=== PATIENT | female | born 1985 | race Caucasian/White ===

== ENCOUNTER 2018-02-05 14:44 | Inpatient (IN) | payer SELFPAY ==
[2018-02-05 16:40] LABS: BILIRUBIN,URINE NEGATIVE (NEGATIVE); BLOOD/HEMOGLOBIN,URINE 4+ (NEGATIVE); GLUCOSE, URINE NEGATIVE (NEGATIVE); KETONES,URINE NEGATIVE (NEGATIVE); LEUKOCYTE ESTERASE ,URINE 3+ (NEGATIVE); NITRITES,URINE NEGATIVE (NEGATIVE); PH,URINE 6.5 (5.0 - 8.0); PROTEIN,URINE 2+ (NEGATIVE); UROBILINOGEN,URINE NORMAL (NORMAL)
[2018-02-05 16:52] LABS: APPEARANCE,URINE HAZY (CLEAR); COLOR,URINE YELLOW (YELLOW)
--- NOTE | 2018-02-05 16:52 | DR.GENAD ---
HPI - PCP Primary Care Physician: none - Complaint/Symptoms Chief Complaint Doctors Comments: Patient admits to hurting all, especially when urinating. She denies fever, vomiting or diarrhea. Chief Complaint:: "hurting when I pee hurting all over" Self Treatment fo Chief Complaint: tubes tied in 2017 every time i have sex i bleed - Source History Provided: Patient - Mode of Arrival Mode of Arrival: Ambulatory - Timing Onset of Chief Complaint: 02/03/18 PMH - PMH Past Medical History: Yes Past Medical History: Anxiety, Asthma Past Surgical History: Yes Surgical History: Past Surgical History Comment: tubes tied - Family History History of Family Medical Conditions: Yes Family Medical History: Diabetes Mellitus, Cancer, Hypertension - Social History Does patient currently use any type of tobacco product: Yes Have you used tobacco products in the last 12 months: Yes Type of Tobacco Use: Cigarettes How many years tobacco product used: 15 Does any household member use tobacco: No Alcohol Use: None Do you use any recreational Drugs:: No Lives With: Family Lives Where: Home - infectious screening In the last 2 months have you had wt loss of >10#?: NO Have you had fever, night sweats or hemotysis?: No Have you traveled outside the country in the last 6 months?: No Isolation: Standard PE - Vital Signs Vitals: Temperature 100 F Pulse Rate 117 Respiratory Rate 18 Blood Pressure 120/70 O2 Sat by Pulse Oximetry 99 ROR - Labs Reviewed Result Diagrams: 02/05/18 17:22 02/05/18 17:10 Laboratory: WBC 13.7 X10^3/uL (3.6-10.0) H 02/05/18 17: RBC 4.58 X10^6/uL (3.5-5.4) 02/05/18 17:22 Hgb 12.8 g/dL (12.0-16.0) 02/05/18 17:22 Hct 37.1 % (36.0-47.0) 02/05/18 17:22 MCV 81.0 fL (80.0-100.0) 02/05/18 17:22 MCH 27.9 pg (27.0-34.0) 02/05/18 17:22 MCHC 34.4 g/dL (33.0-35.0) 02/05/18 17:22 RDW 15.7 % (11.6-16.5) 02/05/18 17:22 Plt Count 174 X10^3/uL (150.0-450.0) 02/05/18 17:22 MPV 9.0 fL (7.4-11.0) 02/05/18 17:22 Neut % (Auto) 78.2 % (42.0-75.0) H 02/05/18 17:22 Lymph % (Auto) 10.9 % (21.0-51.0) L 02/05/18 17:22 [place] % (Auto) 10.3 % (0.0-13.0) 02/05/18 17:22 Eos % (Auto) 0.1 % (0.9-2.9) L 02/05/18 17:22 Baso % (Auto) 0.5 % (0.2-1.0) 02/05/18 17:22 Neut # (Auto) 10.7 x10^3/uL (2.2-4.8) H 02/05/18 17:22 Lymph # (Auto) 1.5 X10^3/uL (1.3-2.9) 02/05/18 17:22 [place] # (Auto) 1.4 x10^3/uL (0.3-0.8) H 02/05/18 17:22 Eos # (Auto) 0.0 x10^3/uL (0.0-0.2) 02/05/18 17:22 Baso # (Auto) 0.1 X10^3/uL (0.0-0.1) 02/05/18 17:22 Absolute Nucleated RBC 0.0 /100WBC 02/05/18 17:22 Sodium 130 mmol/L (136-145) L 02/05/18 17:10 Corrected Sodium TNP 02/05/18 17:10 Potassium 3.9 mmol/L (3.5-5.1) 02/05/18 17:10 Chloride 96 mmol/L (98-107) L 02/05/18 17:10 Carbon Dioxide 20.6 mmol/L (21-32) L 02/05/18 17:10 BUN 9 mg/dL (7-18) 02/05/18 17:10 Creatinine 0.82 mg/dL (0.55-1.02) 02/05/18 17:10 Est GFR (MDRD) Af Amer > 60 (>60) 02/05/18 17:10 Est GFR (MDRD) Non-Af > 60 (>60) 02/05/18 17:10 Glucose 99 mg/dL (65-99) 02/05/18 17:10 Calcium 8.0 mg/dL (8.5-10.1) L 02/05/18 17:10 C-Reactive Protein 183.00 mg/L (0-3.0) H 02/05/18 17:10 HCG, Qual Negative <10 mIU/mL 02/05/18 17:10 Specimen Type Random urine 02/05/18 16:30 Urine Color Yellow (YELLOW) 02/05/18 16:30 Urine Appearance Hazy (CLEAR) 02/05/18 16:30 Urine pH 6.5 (5.0 - 8.0) 02/05/18 16:30 Ur Specific [place] 1.010 (1.000-1.030) 02/05/18 16:30 Urine Protein 2+ (NEGATIVE) 02/05/18 16:30 Urine Glucose (UA) Negative (NEGATIVE) 02/05/18 16:30 Urine Ketones Negative (NEGATIVE) 02/05/18 16:30 Urine Occult Blood 4+ (NEGATIVE) 02/05/18 16:30 Urine Nitrite Negative (NEGATIVE) 02/05/18 16:30 Urine Bilirubin Negative (NEGATIVE) 02/05/18 16:30 Urine Urobilinogen Normal (NORMAL) 02/05/18 16:30 Ur Leukocyte Esterase 3+ (NEGATIVE) 02/05/18 16:30 Urine RBC 5-10 /HPF (NONE SEEN) 02/05/18 16:30 Urine WBC 3-5 /HPF (NONE SEEN) 02/05/18 16:30 Ur Squamous Epith Cells Moderate /HPF (NEGATIVE) 02/05/18 16:30 Urine Bacteria Negative /HPF (NEGATIVE) 02/05/18 16:30 Urine Mucus Few /HPF (NEGATIVE) 02/05/18 16:30 Ur Culture Indicated? No/not indicated 02/05/18 16:30 - Discharge Plan Condition: Stable - Follow ups/Referrals Follow ups/Referrals: NFD,None [Primary Care Provider] - 3 days - Instructions
[2018-02-05 16:53] LABS: BACTERIA,URINE NEGATIVE /HPF (NEGATIVE); MUCUS,URINE FEW /HPF (NEGATIVE); SQUAMOUS EPITHELIAL CELL,UR MODERATE /HPF (NEGATIVE)
[2018-02-05 17:29] LABS: BASOPHILS # (AUTO) 0.1 X10^3/uL (0.0-0.1); BASOPHILS % (AUTO) 0.5 % (0.2-1.0); EOSINOPHILS % (AUTO) 0.1 % (0.9-2.9); HEMATOCRIT 37.1 % (36.0-47.0); HEMOGLOBIN 12.8 g/dL (12.0-16.0); LYMPHOCYTES # (AUTO) 1.5 X10^3/uL (1.3-2.9); LYMPHOCYTES % (AUTO) 10.9 % (21.0-51.0); MEAN CORPUSCULAR HEMOGLOBIN 27.9 pg (27.0-34.0); MEAN CORPUSCULAR HGB CONC 34.4 g/dL (33.0-35.0); MONOCYTES # (AUTO) 1.4 x10^3/uL (0.3-0.8); MONOCYTES % (AUTO) 10.3 % (0.0-13.0); NEUTROPHILS # (AUTO) 10.7 x10^3/uL (2.2-4.8); NEUTROPHILS % (AUTO) 78.2 % (42.0-75.0); PLATELET COUNT 174 X10^3/uL (150.0-450.0); RED BLOOD COUNT 4.58 X10^6/uL (3.5-5.4); RED CELL DISTRIBUTION WIDTH 15.7 % (11.6-16.5); WHITE BLOOD COUNT 13.7 X10^3/uL (3.6-10.0)
[2018-02-05 17:36] LABS: SERUM PREGNANCY TEST, QUAL NEGATIVE <10 mIU/mL
[2018-02-05 17:42] LABS: BLOOD UREA NITROGEN 9 mg/dL (7-18); CARBON DIOXIDE 20.6 mmol/L (21-32); CHLORIDE 96 mmol/L (98-107); CREATININE 0.82 mg/dL (0.55-1.02); SODIUM 130 mmol/L (136-145); eGFR BLACK RACES > 60 (>60); eGFR NON BLACK RACES > 60 (>60)
--- NOTE | 2018-02-05 20:08 | CT ---
CT abdomen and pelvis with contrast Indication: Abdominal flank pain Technique: Helical images through the abdomen and pelvis after IV contrast. Coronal and sagittal refo rmats provided. Findings: Limited images through the lower chest shows no acute abnormality. Review of bone windows s hows no destructive osseous lesion. Abdomen: The liver, gallbladder, adrenal glands, pancreas, stomach, small bowel and colon are normal. The appendix is not well seen without right lower quadrant inflammatory process. The spleen is somew hat lobular. The right kidney is normal. Left kidney shows striated nephrogram, slight enlargement an d perinephric stranding. No stone or hydroureteronephrosis seen. Duplicated IVC noted. Pelvis: There is free fluid in the pelvis. The rectum, urinary bladder and uterus show no acute abnor mality. Right adnexal region appears normal. Left corpus luteum cyst noted. Impression: 1. Left pyelonephritis 2. 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 Reported By:
[2018-02-05] MEDS: MORPHINE SULFATE INJ 4 MG IVP PRN (21:21)
[2018-02-05] MEDS: ZOFRAN INJ 4 MG VIAL IVP PRN (21:23)
[2018-02-05] MEDS ORDERED: AMPICILLIN VIAL 1 GM ONE (21:31)
[2018-02-05] MEDS ORDERED: NS 100 ML IV + SPIKE MINIBAG* 100 ML IV ONE (21:32)
[2018-02-05] MEDS: NS IV SCH (21:40)
[2018-02-05] MEDS: AMPICILLIN IV SCH (21:40)
[2018-02-05] MEDS: SPIKE MINIBAG IV SCH (21:40)
[2018-02-05] MEDS: NS 1000 ML 1,000 ML IV SCH (21:40)
[2018-02-05 23:58] VITALS: BMI 28.1
[2018-02-06] MEDS ORDERED: AMPICILLIN VIAL 1 GM ONE (02:11)
[2018-02-06] MEDS ORDERED: NS 100 ML IV + SPIKE MINIBAG* 100 ML IV ONE ×3 (02:14→12:02)
[2018-02-06] MEDS: NS IV SCH ×2 (02:15→08:12)
[2018-02-06] MEDS: AMPICILLIN IV SCH ×2 (02:15→08:12)
[2018-02-06] MEDS: SPIKE MINIBAG IV SCH ×2 (02:15→08:12)
[2018-02-06] MEDS: MORPHINE SULFATE INJ 4 MG IVP PRN ×5 (02:15→21:30)
[2018-02-06] MEDS ORDERED: GENTAMICIN INJ ONE (05:28)
[2018-02-06] MEDS ORDERED: NS 100 ML IV 100 ML IV ONE (05:29)
[2018-02-06] MEDS: NS 1000 ML 1,000 ML IV SCH ×3 (05:53→22:16)
[2018-02-06] MEDS ORDERED: GENTAMICIN INJ 80 MG in NS 100 ML IV 100 ML IV SCH (06:00)
[2018-02-06 07:10] LABS: ALANINE AMINOTRANSFERASE 14 Units/L (12-78); ALBUMIN 2.9 g/dL (3.4-5.0); ALKALINE PHOSPHATASE 63 Units/L (46-116); ASPARTATE AMINO TRANSFERASE 9 Units/L (15-37); BLOOD UREA NITROGEN 7 mg/dL (7-18); CALCIUM 7.6 mg/dL (8.5-10.1); CARBON DIOXIDE 24.9 mmol/L (21-32); CHLORIDE 99 mmol/L (98-107); COR CA(FOR HYPOALB) 8.5 mg/dL (8.5-10.1); CREATININE 0.92 mg/dL (0.55-1.02); SODIUM 134 mmol/L (136-145); TOTAL PROTEIN 6.9 g/dL (6.4-8.2); eGFR BLACK RACES > 60 (>60); eGFR NON BLACK RACES > 60 (>60)
[2018-02-06 07:12] LABS: BASOPHILS % (AUTO) 0.5 % (0.2-1.0); EOSINOPHILS # (AUTO) 0.1 x10^3/uL (0.0-0.2); HEMATOCRIT 34.1 % (36.0-47.0); HEMOGLOBIN 11.6 g/dL (12.0-16.0); LYMPHOCYTES # (AUTO) 2.1 X10^3/uL (1.3-2.9); LYMPHOCYTES % (AUTO) 23.9 % (21.0-51.0); MEAN CORPUSCULAR HEMOGLOBIN 27.9 pg (27.0-34.0); MEAN CORPUSCULAR HGB CONC 34.2 g/dL (33.0-35.0); MEAN CORPUSCULAR VOLUME 81.8 fL (80.0-100.0); MEAN PLATELET VOLUME 9.4 fL (7.4-11.0); MONOCYTES # (AUTO) 1.1 x10^3/uL (0.3-0.8); MONOCYTES % (AUTO) 13.1 % (0.0-13.0); NEUTROPHILS # (AUTO) 5.3 x10^3/uL (2.2-4.8); NEUTROPHILS % (AUTO) 61.5 % (42.0-75.0); PLATELET COUNT 170 X10^3/uL (150.0-450.0); RED BLOOD COUNT 4.17 X10^6/uL (3.5-5.4); RED CELL DISTRIBUTION WIDTH 16.2 % (11.6-16.5); WHITE BLOOD COUNT 8.7 X10^3/uL (3.6-10.0)
[2018-02-06] MEDS: ZOFRAN INJ 4 MG VIAL IVP PRN (08:12)
[2018-02-06] MEDS: CIPRO IV 400 MG PREMIX* 400 MG/200 ML IV.SOLN. IV SCH ×2 (10:57→21:00)
[2018-02-06] MEDS: ZOSYN VIAL 4.5 GM IV SCH ×3 (12:29→22:15)
--- NOTE | 2018-02-06 16:39 | DR.H&P ---
H&P - History & Physical for Day of: H&P Date: 02/05/18 - Chief Complaint Chief Complaint: ABDOMINAL PAIN, DYSURIA - Allergies Allergies/Adverse Reactions: Allergies Allergy/AdvReac Type Severity Reaction Status Date / Time No Known Drug Allergies Allergy Verified 02/05/18 14:46 - History of Present Illness History of Present Illness: IS A 32 YEAR OLD WHITE FEMALE WHO PRESENTED TO THE EMERGENCY ROOM WITH COMPLAINTS OF GENERALIZED ACHING, ABDOMINAL PAIN, AND PAINFUL URINATION. SHE DENIES FEVER, VOMITING, OR DIARRHEA. MEDICAL HISTORY INCLUDES ANXIETY, ASTHMA, , AND A RECENT TUBAL LIGATION. ON EXAMINATION, MODERATE TENDERNESS NOTED TO THE SUPRAPUBIC ARE ON PALPATION. ON ARRIVAL TO THE ER, VITALS WERE 100.0-117-18-99%-120/70. LABS WERE OBTAINED. ABNORMAL LAB VALUES INCLUDE THE FOLLOWING: WBC 13.7, SODIUM 130, CHLORIDE 96, CARBON DIOXIDE 20.6, CALCIUM 8.0, CRP 183. A URINALYSIS REVEALED WBC 3-5, RBC 5-10, LEUKOCYTES 3+, BACTERIA NEGATIVE, OCCULT BLOOD 4+, PROTEIN 2+ . A URINE CULTURE AND BLOOD CULTURES ARE PENDING. AN ABDOMEN/PELVIS CT WITH CONTRAST WAS OBTAINED AND REVEALED LEFT PYELOEPHRITIS. DUPLICATED IVC, CORPUS LUTEUM CYST ON THE LEFT. PATIENT WAS ADMITTED TO THE HOSPITAL FOR FURTHER EVALUATION AND TREATMENT. SHE WAS STARTED ON NORMAL SALINE AT 125ML/HR, AMPICILLIN 1GM IV Q6H, AND GENTAMICIN 80MG IV Q8H. WE PLAN TO FOLLOW UP WITH AM LABS AND CONTINUE TO MONITOR PATIENT. - Past Medical History Past Medical History: Anxiety, Asthma - Past Surgical History Surgical History: Additional Surgical History: RECENT TUBAL LIGATION - Family History Family Medical History: Diabetes Mellitus, Cancer, Hypertension - Social History Does patient currently use any type of tobacco product: Yes Have you used tobacco products in the last 12 months: Yes Type of Tobacco Use: Cigarettes How many years tobacco product used: 15 Does any household member use tobacco: Yes Alcohol Use: Occasionally Drug Use: None - Medications Home Medications: NK [NK] 02/05/18 [History Confirmed 02/05/18] - Review of Systems Constitutional: No Symptoms Reported Eyes: No Symptoms Reported ENT: No Symptoms Reported Respiratory: No Symptoms Reported Cardiovascular: No Symptoms Reported Gastrointestinal: Abdominal Pain Genitourinary: Dysuria Musculoskeletal: No Symptoms Reported Skin: No Symptoms Reported Neurological: No Symptoms Reported - Physical Exam Vital Signs: Temperature 98.6 F Pulse Rate [Radial] 85 Pulse Rate 117 Respiratory Rate 22 Blood Pressure [Left Arm] 123/58 Blood Pressure 120/70 O2 Sat by Pulse Oximetry 99 Oriented: Normal Eyes: Normal Ear: Normal Nose: Normal Throat: Normal Respiratory: Clear Throughout Cardiovascular: Normal : Normal Auscultation: Bowel Sounds: Normal Palpation: Normal Tenderness: Suprapubic, Moderate. negative: Rebound, Guarding, Rigidity Skin: Normal Musculoskeletal: Normal Psychiatric: Normal Mood Description: Calm Affect: Normal Speech Pattern: Clear - Assessment/Plan (1) Pyelonephritis Status: Acute Plan: NORMAL SALINE AT 125ML/HR, AMPICILLIN 1GM IV Q6H, GENTAMICIN 80MG IV Q6H, CONTINUE TO MONITOR
[2018-02-06] MEDS: NICOTINE PATCH TD SCH (16:47)
[2018-02-07] MEDS ORDERED: NS 100 ML IV + SPIKE MINIBAG* 100 ML IV ONE ×3 (02:56→21:14)
[2018-02-07] MEDS: ZOSYN VIAL 4.5 GM IV SCH ×3 (06:30→21:13)
[2018-02-07 06:37] LABS: BASOPHILS % (AUTO) 0.5 % (0.2-1.0); EOSINOPHILS # (AUTO) 0.1 x10^3/uL (0.0-0.2); EOSINOPHILS % (AUTO) 1.6 % (0.9-2.9); HEMATOCRIT 33.4 % (36.0-47.0); HEMOGLOBIN 11.3 g/dL (12.0-16.0); LYMPHOCYTES % (AUTO) 26.8 % (21.0-51.0); MEAN CORPUSCULAR HEMOGLOBIN 27.8 pg (27.0-34.0); MEAN CORPUSCULAR HGB CONC 33.8 g/dL (33.0-35.0); MEAN CORPUSCULAR VOLUME 82.3 fL (80.0-100.0); MEAN PLATELET VOLUME 9.2 fL (7.4-11.0); MONOCYTES # (AUTO) 0.9 x10^3/uL (0.3-0.8); MONOCYTES % (AUTO) 11.8 % (0.0-13.0); NEUTROPHILS # (AUTO) 4.3 x10^3/uL (2.2-4.8); NEUTROPHILS % (AUTO) 59.3 % (42.0-75.0); PLATELET COUNT 193 X10^3/uL (150.0-450.0); RED BLOOD COUNT 4.06 X10^6/uL (3.5-5.4); WHITE BLOOD COUNT 7.3 X10^3/uL (3.6-10.0)
[2018-02-07 06:46] LABS: ALANINE AMINOTRANSFERASE 18 Units/L (12-78); ALBUMIN 2.6 g/dL (3.4-5.0); ALKALINE PHOSPHATASE 62 Units/L (46-116); ASPARTATE AMINO TRANSFERASE 15 Units/L (15-37); BLOOD UREA NITROGEN 6 mg/dL (7-18); CALCIUM 7.7 mg/dL (8.5-10.1); CARBON DIOXIDE 25.7 mmol/L (21-32); CHLORIDE 103 mmol/L (98-107); COR CA(FOR HYPOALB) 8.8 mg/dL (8.5-10.1); COR NA(FOR HYPERGLY) 138 mmol/L (136-145); CREATININE 0.72 mg/dL (0.55-1.02); SODIUM 138 mmol/L (136-145); TOTAL PROTEIN 6.2 g/dL (6.4-8.2); eGFR BLACK RACES > 60 (>60); eGFR NON BLACK RACES > 60 (>60)
[2018-02-07] MEDS: MORPHINE SULFATE INJ 4 MG IVP PRN ×4 (09:15→22:00)
[2018-02-07] MEDS: CIPRO IV 400 MG PREMIX* 400 MG/200 ML IV.SOLN. IV SCH ×2 (09:28→20:10)
[2018-02-07] MEDS: NICOTINE PATCH TD SCH (09:29)
[2018-02-07] MEDS: NS 1000 ML 1,000 ML IV SCH ×3 (16:16→20:29)
--- NOTE | 2018-02-07 19:52 | PCM.PROG ---
Progress Note - Progress Note for Day of Date: 02/06/18 - Subjective Subjective: IS BEING TREATED FOR PYELONEPHRITIS. TODAY, SHE IS ALERT AND ORIENTED, LYING IN BED ON MORNING ROUNDS. SHE CONTINUES WITH COMPLAINTS OF ABDOMINAL PAIN AND BURNING ON URINATION. ON EXAMINATION, SHE IS NOTED WITH MODERATE TENDERNESS TO THE SUPRAPUBIC AREA. BOWEL SOUNDS ARE NORMAL IN ALL QUADRANTS. HER VITALS THIS MORNING ARE 97.6-73-20-99%-97/54. LAB WERE OBTAINED. ABNORMAL LAB VALUES INCLUDE THE FOLLOWING: HGB 11.6, HCT 34.1, SODIUM 134, CALCIUM 7.6, AST 9, ALBUMIN 2.9. BLOOD CULTURES AND SPUTUM CULTURES ARE PENDING. TODAY, WE WILL DISCONTINUE THE AMPICILLIN AND THE GENTAMICIN THAT SHE IS CURRENTLY RECEIVING. WE WILL START CIPRO 400MG IV Q12H AND ZOSYN 4.5GM IV Q8H. OTHERWISE, WE WILL CONTINUE WITH CURRENT PLAN OF CARE. WE PLAN TO FOLLOW UP WITH AM LABS AND CONTINUE TO MONITOR PATIENT. - Past Medical Family Social History Past Med/Fam/Surg Hx: No changes since H&P Allergies: Allergies No Known Drug Allergies Allergy (Verified 02/05/18 14:46) - Review of Systems ROS: No change since H&P - Vital Signs and I&O's Vital Signs: Temperature 98.5 F Pulse Rate [Radial] 83 Pulse Rate 117 Respiratory Rate 18 Blood Pressure [Left Arm] 112/55 Blood Pressure 120/70 O2 Sat by Pulse Oximetry 100 Intake and Output: Intake & Output 02/05/18 02/06/18 02/07/18 02/08/18 11:59 11:59 11:59 11:59 Intake Total 1000 3130 1800 Balance 1000 3130 1800 - Physical Exam Oriented: Normal Eyes: Normal Ear: Normal Nose: Normal Throat: Normal Cardiovascular: Normal : Normal Auscultation: Bowel Sounds: Normal Palpation: Normal Tenderness: Suprapubic, Moderate. negative: Rebound, Guarding, Rigidity Skin: Normal Musculoskeletal: Normal Psychiatric: Normal Mood Description: Calm Affect: Normal Speech Pattern: Clear, Appropriate - Laboratory and Diagnostics Result Diagrams: 02/07/18 05:44 02/07/18 05:44 Labs: 02/06/18 02:24 Urine,Clean Catch Urine Culture - Preliminary 02/05/18 21:27 Blood Blood Culture - Preliminary 02/05/18 21:00 Blood Blood Culture - Preliminary Laboratory WBC 7.3 X10^3/uL (3.6-10.0) 02/07/18 05:44 RBC 4.06 X10^6/uL (3.5-5.4) 02/07/18 05:44 Hgb 11.3 g/dL (12.0-16.0) L 02/07/18 05:44 Hct 33.4 % (36.0-47.0) L 02/07/18 05:44 MCV 82.3 fL (80.0-100.0) 02/07/18 05:44 MCH 27.8 pg (27.0-34.0) 02/07/18 05:44 MCHC 33.8 g/dL (33.0-35.0) 02/07/18 05:44 RDW 16.0 % (11.6-16.5) 02/07/18 05:44 Plt Count 193 X10^3/uL (150.0-450.0) 02/07/18 05:44 MPV 9.2 fL (7.4-11.0) 02/07/18 05:44 Neut % (Auto) 59.3 % (42.0-75.0) 02/07/18 05:44 Lymph % (Auto) 26.8 % (21.0-51.0) 02/07/18 05:44 [place] % (Auto) 11.8 % (0.0-13.0) 02/07/18 05:44 Eos % (Auto) 1.6 % (0.9-2.9) 02/07/18 05:44 Baso % (Auto) 0.5 % (0.2-1.0) 02/07/18 05:44 Neut # (Auto) 4.3 x10^3/uL (2.2-4.8) 02/07/18 05:44 Lymph # (Auto) 2.0 X10^3/uL (1.3-2.9) 02/07/18 05:44 [place] # (Auto) 0.9 x10^3/uL (0.3-0.8) H 02/07/18 05:44 Eos # (Auto) 0.1 x10^3/uL (0.0-0.2) 02/07/18 05:44 Baso # (Auto) 0.0 X10^3/uL (0.0-0.1) 02/07/18 05:44 Absolute Nucleated RBC 0.0 /100WBC 02/07/18 05:44 Sodium 138 mmol/L (136-145) 02/07/18 05:44 Corrected Sodium 138 mmol/L (136-145) 02/07/18 05:44 Potassium 4.1 mmol/L (3.5-5.1) 02/07/18 05:44 Chloride 103 mmol/L (98-107) 02/07/18 05:44 Carbon Dioxide 25.7 mmol/L (21-32) 02/07/18 05:44 BUN 6 mg/dL (7-18) L 02/07/18 05:44 Creatinine 0.72 mg/dL (0.55-1.02) 02/07/18 05:44 Est GFR (MDRD) Af Amer > 60 (>60) 02/07/18 05:44 Est GFR (MDRD) Non-Af > 60 (>60) 02/07/18 05:44 Glucose 114 mg/dL (65-99) H 02/07/18 05:44 Calcium 7.7 mg/dL (8.5-10.1) L 02/07/18 05:44 Corrected Calcium 8.8 mg/dL (8.5-10.1) 02/07/18 05:44 Total Bilirubin 0.10 mg/dL (0.2-1.0) L 02/07/18 05:44 AST 15 Units/L (15-37) 02/07/18 05:44 ALT 18 Units/L (12-78) 02/07/18 05:44 Alkaline Phosphatase 62 Units/L (46-116) 02/07/18 05:44 C-Reactive Protein 100.40 mg/L (0-3.0) H 02/07/18 05:44 Total Protein 6.2 g/dL (6.4-8.2) L 02/07/18 05:44 Albumin 2.6 g/dL (3.4-5.0) L 02/07/18 05:44 Globulin 3.6 g/dL (2.5-4.5) 02/07/18 05:44 Albumin/Globulin Ratio 0.7 Ratio (1.1-2.1) L 02/07/18 05:44 HCG, Qual Negative <10 mIU/mL 02/05/18 17:10 Specimen Type Random urine 02/05/18 16:30 Urine Color Yellow (YELLOW) 02/05/18 16:30 Urine Appearance Hazy (CLEAR) 02/05/18 16:30 Urine pH 6.5 (5.0 - 8.0) 02/05/18 16:30 Ur Specific [place] 1.010 (1.000-1.030) 02/05/18 16:30 Urine Protein 2+ (NEGATIVE) 02/05/18 16:30 Urine Glucose (UA) Negative (NEGATIVE) 02/05/18 16:30 Urine Ketones Negative (NEGATIVE) 02/05/18 16:30 Urine Occult Blood 4+ (NEGATIVE) 02/05/18 16:30 Urine Nitrite Negative (NEGATIVE) 02/05/18 16:30 Urine Bilirubin Negative (NEGATIVE) 02/05/18 16:30 Urine Urobilinogen Normal (NORMAL) 02/05/18 16:30 Ur Leukocyte Esterase 3+ (NEGATIVE) 02/05/18 16:30 Urine RBC 5-10 /HPF (NONE SEEN) 02/05/18 16:30 Urine WBC 3-5 /HPF (NONE SEEN) 02/05/18 16:30 Ur Squamous Epith Cells Moderate /HPF (NEGATIVE) 02/05/18 16:30 Urine Bacteria Negative /HPF (NEGATIVE) 02/05/18 16:30 Urine Mucus Few /HPF (NEGATIVE) 02/05/18 16:30 Ur Culture Indicated? No/not indicated 02/05/18 16:30 - Plan (1) Pyelonephritis Status: Acute Plan: NORMAL SALINE AT 125ML/HR, ZOSYN 4.5GM IV Q8H, LEVAQUIN 750MG IV DAILY, CONTINUE TO MONITOR
[2018-02-08] MEDS: MORPHINE SULFATE INJ 4 MG IVP PRN ×2 (02:04→07:46)
[2018-02-08] MEDS ORDERED: NS 100 ML IV + SPIKE MINIBAG* 100 ML IV ONE (03:56)
[2018-02-08 04:22] LABS: BASOPHILS # (AUTO) 0.1 X10^3/uL (0.0-0.1); BASOPHILS % (AUTO) 0.7 % (0.2-1.0); EOSINOPHILS # (AUTO) 0.2 x10^3/uL (0.0-0.2); EOSINOPHILS % (AUTO) 2.1 % (0.9-2.9); HEMATOCRIT 32.8 % (36.0-47.0); HEMOGLOBIN 11.1 g/dL (12.0-16.0); LYMPHOCYTES # (AUTO) 2.4 X10^3/uL (1.3-2.9); LYMPHOCYTES % (AUTO) 30.4 % (21.0-51.0); MEAN CORPUSCULAR HEMOGLOBIN 27.8 pg (27.0-34.0); MEAN CORPUSCULAR HGB CONC 33.8 g/dL (33.0-35.0); MEAN CORPUSCULAR VOLUME 82.3 fL (80.0-100.0); MEAN PLATELET VOLUME 8.9 fL (7.4-11.0); MONOCYTES # (AUTO) 0.8 x10^3/uL (0.3-0.8); MONOCYTES % (AUTO) 10.7 % (0.0-13.0); NEUTROPHILS # (AUTO) 4.4 x10^3/uL (2.2-4.8); NEUTROPHILS % (AUTO) 56.1 % (42.0-75.0); PLATELET COUNT 209 X10^3/uL (150.0-450.0); RED BLOOD COUNT 3.99 X10^6/uL (3.5-5.4); RED CELL DISTRIBUTION WIDTH 16.1 % (11.6-16.5); WHITE BLOOD COUNT 7.8 X10^3/uL (3.6-10.0)
[2018-02-08 04:31] LABS: ALANINE AMINOTRANSFERASE 17 Units/L (12-78); ALBUMIN 2.5 g/dL (3.4-5.0); ALKALINE PHOSPHATASE 58 Units/L (46-116); ASPARTATE AMINO TRANSFERASE 13 Units/L (15-37); BLOOD UREA NITROGEN 5 mg/dL (7-18); CALCIUM 7.8 mg/dL (8.5-10.1); CHLORIDE 106 mmol/L (98-107); CREATININE 0.74 mg/dL (0.55-1.02); SODIUM 141 mmol/L (136-145); eGFR BLACK RACES > 60 (>60); eGFR NON BLACK RACES > 60 (>60)
[2018-02-08] MEDS: ZOSYN VIAL 4.5 GM IV SCH (05:02)
[2018-02-08] MEDS: NS 1000 ML 1,000 ML IV SCH (05:02)
[2018-02-08 08:06] VITALS: BP 112/60
[2018-02-08] MEDS: CIPRO IV 400 MG PREMIX* 400 MG/200 ML IV.SOLN. IV SCH (09:12)
[2018-02-08] MEDS: NICOTINE PATCH TD SCH (09:13)
[2018-02-08] MEDS: ZOFRAN INJ 4 MG VIAL IVP PRN (09:47)
== END 2018-02-08 13:01 | disposition home or self-care (01) | DRG 690 ==
LOC: ER 14:55 → OBS 22:57
PROVIDERS: ADMIT Internal Medicine; ATTEND Internal Medicine
DX: N10 Acute pyelonephritis (principal); R10.84 Generalized abdominal pain; J45.998 Other asthma; R79.82 Elevated C-reactive protein (CRP); F41.8 Other specified anxiety disorders
CPT/HCPCS: 36415; 74177; 80048; 80053; 81001; 84703; 85025; 86140; 87040; 87086; 94760; 96365; 96367; 96374; 96375; 99282; 99284; A4216; A4222; J0290; J0744; J1580; J2270; J2405; J2543